=== PATIENT | female | born 1980 | race Two or more races ===

== ENCOUNTER 2018-07-13 19:52 | Emergency (ER) | payer OTHER ==
[~2018-07-13] VITALS: Ht 157.5 cm; Wt 60.8 kg
--- NOTE | 2018-07-13 20:20 | NUR ---
Pt. ambulated into ED w/ bf, w/ c/o LLQ abd. pain 10/10 for the past 10 days, c/o N/V and feeling bloated and constipated, pt. 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
[2018-07-13] MEDS ORDERED: ONDANSETRON ODT 4 MG TAB.RAPDIS SL ONE (20:30)
[2018-07-13] MEDS ORDERED: HYDROMORPHONE HCL 2 MG TABLET PO ONE (20:30)
[2018-07-13] MEDS ORDERED: HYDROMORPHONE HCL 2 MG TABLET ONE (20:32)
[2018-07-13] MEDS ORDERED: ONDANSETRON ODT 4 MG TAB.RAPDIS ONE (20:32)
[2018-07-13 20:36] LABS: *URINE HCG, QUAL NEGATIVE (NEGATIVE)
--- NOTE | 2018-07-13 20:44 | NUR ---
Called Radiology for US
--- NOTE | 2018-07-13 21:21 | NUR ---
Pt. resting in bed w/ eyes closed, states her pain is down slightly,
--- NOTE | 2018-07-13 21:30 | NUR ---
US tech at bedside,
--- NOTE | 2018-07-13 22:09 | NUR ---
Patient discharged to home in stable conditon. Written and verbal after care instructions given. Patient verbalizes understanding of instructions. Pt. d/c w/ prescription per MD order, d/c papers signed, ID band removed, instructed not to drive, all belongings w/ pt., ambulated off unit w/ steady gait, left in private vehicle w/ boyfriend, NAD,
== END 2018-07-13 22:12 | disposition home or self-care (01) ==
LOC: ER 19:54 → EDBD 19:54 → ER 22:12
DX: N80.9 Endometriosis, unspecified (principal); N83.202 Unspecified ovarian cyst, left side; G89.29 Other chronic pain; R10.2 Pelvic and perineal pain; Z71.6 Tobacco abuse counseling; F17.290 Nicotine dependence, other tobacco product, uncomplicated
CPT/HCPCS: 76770; 76856; 84703; A4663; Q0162

== ENCOUNTER 2018-11-22 19:02 | Emergency (ER) | payer OTHER ==
[~2018-11-22] VITALS: Ht 154.9 cm; Wt 54.9 kg
--- NOTE | 2018-11-22 19:50 | NUR ---
Patient came in for abdominal pain. Pain 03/08. Non-radaiting. Patient ambulated with stable gait. Speech clear, speaks in complete sentences. A/Ox4. Respiratory even and unlabored.
--- NOTE | 2018-11-22 20:01 | NUR ---
ERMD at bedside for MSE
[2018-11-22 20:12] LABS: *BILIRUBIN,URIN NEGATIVE (NEGATIVE); *BLOOD, URINE NEGATIVE (NEGATIVE); *CLARITY,URINE CLEAR (CLEAR); *COLOR,URINE YELLOW (YELLOW); *KETONES,URINE 3+ (NEGATIVE); *UROBILINOGEN,URINE 0.2 E.U./dl (NORMAL); LEUKOCYTE ESTERASE ,URINE NEGATIVE (NEGATIVE); NITRITE, URINE NEGATIVE (NEGATIVE); PH,URINE 8.5 (5.0-8.0); UGLUCOSE NEGATIVE (NEGATIVE)
[2018-11-22] MEDS ORDERED: HYDROMORPHONE 1 MG/1 ML DISP.SYRIN IV ONE (20:15)
[2018-11-22] MEDS ORDERED: PANTOPRAZOLE SODIUM 40 MG VIAL IV ONE (20:15)
[2018-11-22] MEDS ORDERED: ONDANSETRON 4 MG/2 ML VIAL IV ONE (20:15)
[2018-11-22] MEDS ORDERED: IV NORMAL SALINE 1000 ML BAG IV ONE (20:15)
[2018-11-22 20:19] LABS: BACTERIA,URINE FEW /HPF (NONE SEEN); RBC,URINE 0-3 /HPF (0-3); SQUAMOUS EPITHELIAL CELL,UR MODERATE /HPF (NONE SEEN); WBC,URINE 0-3 /HPF (0-3)
[2018-11-22 20:27] LABS: BASOPHILS # (AUTO) 0.1 K/uL (0.0-8.0); BASOPHILS % (AUTO) 0.4 % (0.0-2.0); EOSINOPHILS # (AUTO) 2.5 K/uL (0.0-0.7); EOSINOPHILS % (AUTO) 18.6 % (0.0-7.0); HEMOGLOBIN 14.5 g/dL (10.9-14.3); LYMPHOCYTES # (AUTO) 2.5 K/uL (20.0-40.0); LYMPHOCYTES % (AUTO) 18.6 % (20.5-51.5); MEAN CORPUSCULAR HEMOGLOBIN 30.3 uug (24.7-32.8); MEAN CORPUSCULAR HGB CONC 34 g/dL (32.3-35.6); MEAN CORPUSCULAR VOLUME 89.6 fL (75.5-95.3); MONOCYTES # (AUTO) 0.7 K/uL (2.0-10.0); MONOCYTES % (AUTO) 5.3 % (0.0-11.0); NEUTROPHILS # (AUTO) 7.7 K/uL (1.8-8.9); NEUTROPHILS % (AUTO) 57.1 % (38.5-71.5); PLATELET COUNT (AUTO) 229 K/uL (179-408); WHITE BLOOD COUNT (AUTO) 13.5 K/uL (3.8-11.8)
[2018-11-22] MEDS ORDERED: HYDROMORPHONE 1 MG/1 ML DISP.SYRIN ONE (20:27)
[2018-11-22] MEDS ORDERED: ONDANSETRON 4 MG/2 ML VIAL ONE (20:27)
[2018-11-22] MEDS ORDERED: PANTOPRAZOLE SODIUM 40 MG VIAL ONE (20:28)
[2018-11-22 20:42] LABS: CARBON DIOXIDE 20 mmol/L (21-32); CHLORIDE 109 mmol/L (98-107); GLUCOSE 85 mg/dL (74-106); POTASSIUM 3.5 mmol/L (3.5-5.1); UREA NITROGEN, BLOOD 13 mg/dL (7-18)
[2018-11-22 20:48] LABS: ALANINE AMINOTRANSFERASE 14 U/L (14-59); ALKALINE PHOSPHATASE 62 U/L (50-136); ASPARTATE AMINOTRANSFERASE 18 U/L (15-37); BILIRUBIN,DIRECT 0.1 mg/dL (0.0-0.2); BILIRUBIN,TOTAL 0.4 mg/dL (0.2-1.0); LIPASE 143 U/L (73-393); TOTAL PROTEIN, SERUM 6.2 g/dL (6.4-8.2)
--- NOTE | 2018-11-22 21:19 | NUR ---
Patient transported to CT in stable condition.
[2018-11-22 21:24] LABS: BAND % (MANUAL) 2 % (0-10); EOSINOPHILS % (MANUAL) 19 % (0-8); LYMPHOCYTES % (MANUAL) 20 % (20-40); MONOCYTES % (MANUAL) 4 % (2-10); NEUTROPHILS % (MANUAL) 55 % (42-75)
--- NOTE | 2018-11-22 21:29 | NUR ---
Patient back in room from CT
--- NOTE | 2018-11-22 22:26 | NUR ---
Patient discharged to home in stable conditon. Written and verbal after care instructions given. Patient verbalizes understanding of instructions. Patient ambulatory. All belongings taken with the patient. Friend at bedside and consent to driving the patient home. Patient denied any pain/discomfort at this time.
[2018-11-22 22:27] VITALS: BP 110/70
== END 2018-11-22 22:30 | disposition home or self-care (01) ==
LOC: ER 19:04
DX: K29.70 Gastritis, unspecified, without bleeding (principal); F17.200 Nicotine dependence, unspecified, uncomplicated; Z88.5 Allergy status to narcotic agent; Z88.8 Allergy status to other drugs, medicaments and biological substances
CPT/HCPCS: 36415; 74176; 80048; 80076; 81000; 81001; 83690; 84484; 84702; 85025; 85730; 93005; 96361; 96374; 96375; 99284; C9113; J1170; J2405; 70030-TC; A4663; J7030

== ENCOUNTER 2018-11-27 18:04 | Emergency (ER) | payer OTHER ==
[~2018-11-27] VITALS: Ht 154.9 cm; Wt 54.9 kg
--- NOTE | 2018-11-27 18:23 | NUR ---
PT RECEIVED AMBULATORY.ALERT ABND ORIENTED X4, CO DIFFUSE ABDOMINAL PAIN FOR 5DAYS, DIARRHEA AND BLOATING. MD AT BEDSIDE FOR HISTORY AND PHYSICAL. MONITORED ACCORDINGLY
[2018-11-27 19:02] VITALS: BP 107/72
--- NOTE | 2018-11-27 19:06 | NUR ---
Patient discharged to home in stable conditon. Written and verbal after care instructions given. Patient verbalizes understanding of instructions. pt left ER w/ steady gait.
== END 2018-11-27 19:07 | disposition home or self-care (01) ==
LOC: ER 18:07
DX: R10.12 Left upper quadrant pain (principal); R19.7 Diarrhea, unspecified; F17.200 Nicotine dependence, unspecified, uncomplicated; Z88.8 Allergy status to other drugs, medicaments and biological substances
CPT/HCPCS: A4663